=== PATIENT | female | born 1985 | race Caucasian/White ===

== ENCOUNTER 2018-06-18 02:00 | Emergency (ER) | payer OTHER ==
[~2018-06-18] VITALS: Ht 170.2 cm; Wt 79.4 kg
[~2018-06-18 02:00] MED LIST: ABILIFY20 MG PO; AMPHETAMINE SAL10 MG PO; AUGMENTIN 875 M1 TAB PO; CARAFATE1 GM/10 ML PO; CLONAZEPAM0.5 MG PO; ENDOCET 325 MG-1 TA1 PO; FAMOTIDINE20 M1 PO; K-DUR 20MEQ TA20 MEQ PO; LEVSIN/SL0.125 MG SL; OMEPRAZOLE40 MG PO; ONDANSETRON ODT8 M1 PO; PHENERGAN25 M1 PO; REGLAN10 MG PO; TRAMADOL50 MG PO; TRAZODONE50 MG PO; ZOFRAN ODT4 MG SL; ZOFRAN4 M1 SL; ZOFRAN4 MG PO
--- NOTE | 2018-06-18 03:10 | ED GI/GU/ABDOMINAL COMPLAINT ---
History of Present Illness General Chief Complaint: Nausea, Vomiting, Diarrhea Stated Complaint: NAUSEA X12 HOURS Source: patient, old records Exam Limitations: no limitations Vital Signs & Intake/Output Vital Signs & Intake/Output Vital Signs Date Time Temp Pulse Resp B/P B/P Pulse O2 O2 Flow FiO2 Mean Ox Delivery Rate 06/18 0226 97.8 73 16 118/79 99 Room Air Room Air Allergies Coded Allergies: acetaminophen (Severe, Vomits Blood 06/18/18) Reconcile Medications Famotidine 20 MG TABLET 1 TAB PO DAILY GI (Reported) Hyoscyamine Sulfate (Levsin-Sl) 0.125 MG TAB 1-2 TAB SL Q4P PRN abd pain Ondansetron (Ondansetron Odt) 8 MG TAB.RAPDIS 1 TAB PO PRN GI (Reported) Ondansetron (Zofran Odt) 4 MG TAB.RAPDIS 1 TAB SL TID PRN n/v POTASSIUM CHLORIDE (K-Dur) 20 MEQ TAB 1 TAB PO BID hypokalemia Triage Note: PT TO TRIAGE FOR N/V FOR 12 HOURS, PT STATES SHE HAS EPIGASTRIC PAIN. DENIES DIARRHEA, DENIES FEVERS. Triage Nurses Notes Reviewed? yes LMP (ages 10-50): unknown ? n Is pt currently ? No Onset: Afternoon Duration: hour(s):, continues in ED Timing: recent history Quality/Severity: aching, burning, moderate, vomiting Location: epigastric Radiation: no radiation Activities at Onset: rest Prior Abdominal Problems: none Past Sexual History: Unobtainable at this time Modifying Factors: Worsens With: eating. Associated Symptoms: abdominal pain, loss of appetite, nausea/vomiting HPI: 12 hours prior to admission patient complains of nausea vomiting unable to tolerate liquid or solid. She denies bad food exposure ill contacts fever chills diarrhea abdominal pain chest pain cough shortness of breath headache dysuria rash bleeding . Past History Travel History Traveled to [place] past 21 day No Medical History Any Pertinent Medical History? 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 difficile Surgical History Surgical History: cholecystectomy, tubal ligation Psychosocial History What is your primary language Albanian Tobacco Use: Current Daily Use Daily Tobacco Use Amount/Type: => 5 Cigarettes daily ETOH Use: denies use Illicit Drug Use: marijuana Family History Hx Contributory? No Review of Systems Review of Systems Constitutional: Reports: no symptoms. EENTM: Reports: no symptoms. Respiratory: Reports: no symptoms. Cardiovascular: Reports: no symptoms. GI: Reports: see HPI, nausea, vomiting. Genitourinary: Reports: no symptoms. Musculoskeletal: Reports: no symptoms. Skin: Reports: no symptoms. Neurological/Psychological: Reports: no symptoms. Hematologic/Endocrine: Reports: no symptoms. Immunologic/Allergic: Reports: no symptoms. All Other Systems: Reviewed and Negative Physical Exam Physical Exam General Appearance: well developed/nourished, alert, awake, anxious, moderate distress, obese Head: atraumatic, normal appearance Eyes: Bilateral: normal appearance, PERRL, EOMI, normal inspection. Ears, Nose, Throat, Mouth: hearing grossly normal, dry mucous membranes Neck: normal inspection, supple, full range of motion, normal alignment Respiratory: normal breath sounds, chest non-tender, no respiratory distress, quiet respiration, lungs clear Cardiovascular: regular rate/rhythm, normal peripheral pulses, norml femoral pulses equa Peripheral Pulses: 4+ carotid (R), 4+ carotid (L) Gastrointestinal: normal bowel sounds, soft, non-tender, no organomegaly Back: normal inspection, normal range of motion Extremities: normal range of motion, no ligament instability Neurologic/Psych: no motor/sensory deficits, awake, alert, oriented x 3, normal gait, jewelry dipper II-XII nml as tested Skin: intact, normal color, warm/dry Core Measures ACS in differential dx? No Sepsis Present: No Sepsis Focused Exam Completed? No Progress Differential Diagnosis: gastritis, peptic ulcer, UTI/pyelo Plan of Care: Orders Procedure Date/time Status LIPASE 06/18 308 Active HUMAN BETA HCG SCREEN 06/18 308 Active COMPREHENSIVE METABOLIC PANEL 06/18 308 Active CBC WITHOUT DIFFERENTIAL 06/18 308 Complete Laboratory Tests 06/18/18 0451: Sodium Pending, Potassium Pending, Chloride Pending, Carbon Dioxide Pending, Anion Gap Pending, BUN Pending, Creatinine Pending, BUN/Creatinine Ratio Pending , Glucose Pending, Calcium Pending, Total Bilirubin Pending, AST Pending, ALT Pending, Alkaline Phosphatase Pending, Total Protein Pending, Albumin Pending, Globulin Pending, Albumin/Globulin Ratio Pending, Lipase Pending, Total Beta HCG Pending 06/18/18 0345: CBC w Diff NO MAN DIFF REQ, RBC 4.61, MCV 91.9, MCH 30.9, MCHC 33.6, RDW 13.4, MPV 8.1, Gran % 81.8 H, Lymphocytes % 13.5 L, Monocytes % 4.1, Eosinophils % 0.3, Basophils % 0.3, Absolute Granulocytes 12.5 H, Absolute Lymphocytes 2.1, Absolute Monocytes 0.6, Absolute Eosinophils 0.1, Absolute Basophils 0 Initial ED EKG: none Comments: Patient decided she did not like resting in the hallway and prefers to return home and rest declining redraw of hemolyzed specimens Departure Departure Time of Disposition: 0506 Disposition: HOME OR SELF CARE Condition: Stable Clinical Impression Primary Impression: Nausea and vomiting Secondary Impressions: Dehydration Referrals: Araceli NAVARRETE,Miriam Locke (PCP/Family) Additional Instructions: Clear liquids for 12-24 hours until better Departure Forms: Customer Survey General Discharge Information RELEASE- WORK Prescriptions: Current Visit Scripts Ondansetron (Zofran Odt) 1 TAB SL TID PRN n/v #10 TAB
[2018-06-18 03:58] LABS: ABSOLUTE BASOPHIL COUNT 0 /CUMM (0.0-0.2); ABSOLUTE EOSINOPHIL COUNT 0.1 /CUMM (0.0-0.7); ABSOLUTE GRANULOCYTE CT 12.5 /CUMM (1.4-6.5); ABSOLUTE LYMPH COUNT 2.1 /CUMM (1.2-3.4); ABSOLUTE MONOCYTE COUNT 0.6 /CUMM (0.10-0.60); BASOPHIL % 0.3 % (0.0-2.0); EOSINOPHIL % 0.3 % (0-5); GRANULOCYTE % 81.8 % (42.2-75.2); HEMATOCRIT 42.3 % (37-47); MEAN CORPUSCULAR HGB 30.9 PG (27.0-31.0); MEAN CORPUSCULAR HGB CONC 33.6 G/DL (33.0-37.0); MEAN CORPUSCULAR VOLUME 91.9 FL (81.0-99.0); MEAN PLATELET VOLUME 8.1 FL (7.4-10.4); PLATELET COUNT 263 /CUMM (130-400); RBC DISTRIBUTION WIDTH 13.4 % (11.5-14.5); RED BLOOD CELL CT 4.61 /CUMM (4.20-5.40); WHITE BLOOD CELL COUNT 15.3 /CUMM (4.8-10.8)
[2018-06-18] MEDS ORDERED: ZOFRAN ODT4 M1 SL (05:08)
[2018-06-18 05:10] VITALS: BP 111/65
== END 2018-06-18 05:13 ==
LOC: ERH 02:00
PROVIDERS: Emergency Medicine
DX: R11.2 Nausea with vomiting, unspecified (principal); E86.0 Dehydration; F31.9 Bipolar disorder, unspecified; K27.9 Peptic ulcer, site unspecified, unspecified as acute or chronic, without hemorrhage or perforation; F41.9 Anxiety disorder, unspecified; F17.210 Nicotine dependence, cigarettes, uncomplicated; F12.10 Cannabis abuse, uncomplicated
CPT/HCPCS: 96374; 96375; J2405; J2765